=== PATIENT | female | born 1985 | race Caucasian/White ===

== ENCOUNTER 2017-02-26 14:13 | Emergency (ER) | payer BC, OTHER ==
--- NOTE | 2017-02-26 15:15 | RAD ---
Exam: Two-view chest COMPARISON: None INDICATION: Cough and congestion. Findings: PA and lateral views of the chest were obtained. Cardiac silhouette is within normal limits. Lungs are well-inflated. There is no focal airspace disease or pleural effusion. Bones of the chest wall within normal limits. IMPRESSION: Negative two-view chest.
== END 2017-02-26 15:31 | disposition home or self-care (01) ==
LOC: ED 14:13
DX: J06.9 Acute upper respiratory infection, unspecified (principal)